=== PATIENT | female | born 1965 | race Caucasian/White ===

== ENCOUNTER 2016-04-23 11:07 | Inpatient (IN) | payer MEDICARE, OTHER ==
--- NOTE | ~2016-04-23 | CN ---
Consultation Report [facility] [place] [address] [place]. [address] NAME: LIMA LYON : 63 STATUS : ADM IN PAT#: [id number] AGE: 50 ADM/REG DATE : 04/23/16 MR#: [id number] REPORT SERV DATE: 04/25/16 DICTATED BY: DATE: REPORT STATUS : Draft TRANSCRIBED BY: MODL DATE: 04/25/16 CONSULT DATE OF CONSULTATION: 04/25/2016 CHIEF COMPLAINT/REASON FOR CONSULT: Paroxysmal atrial fibrillation and elevated cardiac biomarkers. HISTORY OF PRESENT ILLNESS: Mrs. Lima Lyon is a pleasant, 50-year-old female with a history of diabetes mellitus that is insulin dependent. She was hospitalized on 04/24/2016 with diabetic ketoacidosis after her insulin pump stopped. She converted to atrial fibrillation with rapid ventricular response during her hospital stay. An EKG performed at 0050 hours this morning documented atrial fibrillation with rapid ventricular response at 176 beats per minute. There is mild ST-segment depression in the inferior and anterolateral leads. The patient denied symptoms other than heart racing, specifically she denied chest pain or shortness of breath. She just felt like her heart was fluttering in her chest. She felt anxious but denied other symptoms. PAST MEDICAL HISTORY: 1. Insulin-dependent diabetes mellitus. 2. Prior bilateral amputations, query peripheral vascular disease. 3. Neuropathy. 4. Chronic stage 3 kidney disease. 5. Hiatal hernia. 6. 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 SOCIAL HISTORY: The patient smokes a pack of cigarettes per day and has for about 30-35 years. She does not use alcohol. She does smoke marijuana a few times a week; she states that it helps her neuropathy. FAMILY HISTORY: Significant for father with a history of [place]. She thinks that her mother may have had a history of [place] in the past as well. REVIEW OF SYSTEMS: Review of systems is performed and is negative except for what is dictated in HPI. PHYSICAL EXAMINATION: VITAL SIGNS: Temperature 97.8, pulse has ranged between 68 and 98 beats per minute, blood pressure 124/84 to 147/63, weight is 73 kg. GENERAL: Mrs. Lyon is a 50-year-old female. She appears much older than her stated age. NECK: I could not appreciate jugular venous distention. There are bilateral carotid bruits, right greater than left. HEART: Regular rate and rhythm. Normal S1, S2. I could not appreciate murmurs, rubs, or Consultation Report [place] [address] [place]. [address] NAME: LIMA LYON : 63 STATUS : ADM IN PAT#: [id number] AGE: 50 ADM/REG DATE : 04/23/16 MR#: [id number] REPORT SERV DATE: 04/25/16 DICTATED BY: DATE: REPORT STATUS : Draft TRANSCRIBED BY: MODL DATE: 04/25/16 gallops. LUNGS: There are end-expiratory wheezes in all the posterior lung huang. ABDOMEN: Soft and nontender. EXTREMITIES: Warm. Femoral pulses are +2 bilaterally. I could not appreciate femoral bruits. There is thjoj-fhk-zgvs amputation on the right. The posterior tibial pulse is intact on the left. REVIEW OF TEST RECORDS/MEDICAL DECISION MAKING: An EKG performed during the episode documented atrial fibrillation with rapid ventricular response of 176 beats per minute. There is mild ST-segment depression noted in the inferior and anterolateral leads. This is resolved with subsequent EKG performed at 0838 hours this morning, which documented normal sinus rhythm with no ischemic ST-T segment changes. DATA: Cardiac biomarkers were less than 0.02 on admission, increased to a peak of 0.19, and are now decreasing to 0.74. Potassium has ranged between 3.4 this morning and 6.6 on admission. BUN 12, creatinine 1.08, glucose is 124. White blood cell count 7.4, hemoglobin 9.2, hematocrit 26.8, platelet count 167. IMPRESSION REPORT AND PLAN: 1. Diabetic ketoacidosis. 2. Paroxysmal atrial fibrillation, now in normal sinus rhythm. 3. Abnormal cardiac biomarker likely secondary to demand. However, the patient has significant risk factors for coronary artery disease. 4. Presumed peripheral vascular disease. 5. Tobacco abuse. RECOMMENDATIONS: 1. I strongly recommended tobacco cessation. 2. Check echocardiogram to evaluate her left ventricular systolic function. 3. Check thyroid stimulating hormone function, has been normal. 4. Check carotid ultrasound. 5. I agree with heparin drip via the coronary protocol. 6. I discussed the risks, benefits of cardiac catheterization with the patient, who is agreeable to proceed. 7. If she has no significant obstructive disease, then she would probably be a candidate for anticoagulation for primary stroke prevention. 8. It has been my pleasure to participate in her care. Please keep her n.p.o. after midnight. Additional recommendations pending clinical course. PHILIP/FARZAD Francoise Danielle M.D. Consultation Report [address] [address] NAME: LIMA LYON : 63 STATUS : ADM IN PAT#: [id number] AGE: 50 ADM/REG DATE : 04/23/16 MR#: [id number] REPORT SERV DATE: 04/25/16 DICTATED BY: DATE: REPORT STATUS : Draft TRANSCRIBED BY: FARZAD DATE: 04/25/16 / [id number] CC: Darci Neri M.D.
--- NOTE | ~2016-04-23 | DS ---
Discharge Summary [facility] [address] [place]. [address] NAME: GERALDO LYON : 63 STATUS : DIS IN PAT#: [id number] AGE: 50 ADM/REG DATE : 04/23/16 MR#: [id number] REPORT SERV DATE: 04/27/16 DICTATED BY: CARTER CRYSTAL DATE: 04/26/16 REPORT STATUS : Draft TRANSCRIBED BY: MODL DATE: 04/26/16 ADMISSION DATE: 04/23/2016 DISCHARGE DATE: 04/26/2016 ACTIVITY COORDINATOR: Francoise Danielle M.D., Cardiology. DISCHARGE DIAGNOSES: 1. Diabetic ketoacidosis in a type 1 diabetic with pump malfunction suspected. 2. Paroxysmal atrial fibrillation with rapid ventricular response. 3. Suspected community-acquired pneumonia. 4. Previous cellulitis. 5. Peripheral arterial disease with previous right below-knee amputation because of methicillin-resistant Staphylococcus aureus osteomyelitis. 6. Chronic low back pain. HISTORY: This patient has had diabetes mellitus type 1 for 30 years. She presented to the emergency room at [facility] with high sugars, ketoacidosis, nausea and vomiting. Her initial blood gas; pH 7.16, pCO2 of 28, PO2 of 96, bicarbonate 17.8, serum ketones were large. The patient was given IV fluids and insulin and has improved. Procalcitonin was elevated at 7.47 and her white count was elevated at 12.3 up to 14.3. The patient admits that she was having cough with discolored sputum. Two blood cultures, no growth. Her chest film did not reveal an infiltrate on admission, but she was volume depleted, so it might have been missed. The patient was given antibiotic coverage with Rocephin 1 g every 24 hours and vancomycin 1 g followed by Pharmacy thereafter. Followup procalcitonin level was 4.83 on 04/25/2016 and her white blood count has normalized. The patient's hemoglobin was initially 8.5 and it is very dependent on her hydration status, but on 04/26/2016, it is 9.2. On 04/24/2016 and early in to the morning of 04/25/2016, she had atrial fibrillation with rapid ventricular response with heart rates up into the 170s. The patient was placed on a Cardizem drip. Troponin went from undetectable up to a peak of 0.91. Cardiology was consulted, Dr. Danielle. She recommended echocardiogram, which was done on 04/25/2016 showing normal left ventricular size and ejection fraction of 55% and left atrium 3 cm. She recommended the patient to have a heart catheterization, which was done on 04/26/2016 revealing minimal coronary artery irregularities in the circumflex, a 25% lesion in the mid RCA, otherwise, normal. Left ventricular ejection fraction 60%. No mitral regurgitation. No aortic stenosis. Her TSH is normal at 0.746. She was started on metoprolol and recommended for anticoagulation. Dr. Danielle explained the reason for anticoagulation to reduce the risk of embolic stroke, the patient did not want to begin this. I explained the reason for anticoagulation at a separate visit with the patient. She again states she is not willing to start it, she wants to go to see her circular sawyer helper, Dr. Llanos, and she states she will be seeing Dr. Llanos's as her new PCP as of 05/08/2016 and she wants to discuss it with Dr. Llanos and her new PCP before she begin any anticoagulation; however, she has been willing to take metoprolol. Discharge Summary [place] [id number] [place]. [address] NAME: GERALDO LYON : 63 STATUS : DIS IN PAT#: [id number] AGE: 50 ADM/REG DATE : 04/23/16 MR#: [id number] REPORT SERV DATE: 04/27/16 DICTATED BY: CARTER CRYSTAL DATE: 04/26/16 REPORT STATUS : Draft TRANSCRIBED BY: FARZAD DATE: 04/26/16 The ict educator is here to work with her this evening to make sure that her pump is working properly. If it is, the patient can transition to her pump and go home. Her bicarbonate today is 25 and potassium is 3.8. Sugars were doing very well precatheterization, during the time down in cath, they got up into 300s. We have given her some extra insulin and they already dramatically improved. DISCHARGE MEDICATIONS: Aspirin 325 mg daily; estradiol 2 mg daily; gabapentin 600 mg t.i.d.; melatonin, she can use [id number]-[id number]-[id number] 9 mg at bedtime p.r.n.; metoprolol 12.5 mg b.i.d.; nicotine patch 14 mg size [id number]; Tylenol 650 q.6 hours p.r.n. pain or fever; Bailey 10/325 t.i.d. p.r.n. pain, which is a chronic medicine for her for her low back pain; then her NovoLog for her insulin pump; and then Levaquin 750 mg p.o. daily for five days for this suspected community-acquired pneumonia. I spent 42 minutes today with the patient and with her nurse and with the ict educator and with discharge planning. RSG/MODL Carter Crystal M.D. / [id number] CC: Kyler Freedman M.D.
--- NOTE | ~2016-04-23 | HP ---
History And Physical [place] [address] [facility] [place]. [address] NAME: GERALDO LYON : 63 STATUS : ADM IN [facility]#: [id number] AGE: 50 ADM/REG DATE : 04/23/16 MR#: [id number] REPORT SERV DATE: 04/24/16 DICTATED BY: TOBI WALLACE DATE: 04/23/16 REPORT STATUS : Draft TRANSCRIBED BY: MODL DATE: 04/23/16 DATE OF ADMISSION: 04/23/2016 CHIEF COMPLAINT: Very high blood sugars. HISTORY OF PRESENT ILLNESS: This is a 50-year-old female with a history of poorly controlled diabetes mellitus with neuropathy and other complications along with gastroparesis who has had numerous episodes of diabetic ketoacidosis, presents to the emergency room at [facility] with the above-mentioned complaint. History is obtained from the patient, and reviewing data available on the [employer] system. According to available data, Mrs. Lyon had been doing poorly for the last three days at home. She says her blood sugars were too high to record and she had been vomiting constantly. She became very weak and obtunded today and was brought to the emergency room. In the emergency room, initial evaluation revealed she had diabetic ketoacidosis with a blood gas of 7.16, 28, 96, and 9.5. Her anion gap was 21 and blood glucose was 741. She was started on fluid replacement therapy aggressively and they had planned to put her in the Medical Intensive Care Unit. They had spoken to the household coordinator who was taking care of the patient as there were beds in the ICU. Her blood sugars came down with treatment and insulin infusion. Her anion gap was resolving and last known was 14. Blood gases showed a 7.23, 35, 49, and 14.5. Hospitalist Service was asked to admit the patient to the floor bed with telemetry for further evaluation and treatment. At the time of my evaluation, she was still lethargic and had to be woken up several times. She was however coherent and able to give reasonably good history. She denied any chest pain, palpitations, or orthopnea. She had no cough, hemoptysis, night sweats, or weight loss. She had no history of recent falls or loss of consciousness. No history of fevers, chills, dysuria, hematuria, hematemesis, or hematochezia. She did have nausea and vomiting mostly bilious as mentioned above. No diarrhea. No other history of recent travel or exposures. PAST MEDICAL HISTORY: Significant for history of prior admissions for diabetic ketoacidosis. She has poorly controlled diabetes mellitus insulin dependent, history of complications from diabetes including neuropathy and gastroparesis, and nephropathy. She has stage 3 chronic kidney disease. She also has a hiatal hernia. She has below-knee amputation on the right lower extremity and amputation of toes of the left lower extremity as well. SOCIAL HISTORY: She has about 30- to 89-fbmn-iyff history of smoking. Denied alcohol use or recreational drug use. FAMILY HISTORY: Noncontributory. MEDICATIONS: Her medications at home were reviewed by me in the chart today and reordered by me. History And Physical [address] [address] NAME: GERALDO LYON : 63 STATUS : ADM IN [facility]#: [id number] AGE: 50 ADM/REG DATE : 04/23/16 MR#: [id number] REPORT SERV DATE: 04/24/16 DICTATED BY: TOBI WALLACE DATE: 04/23/16 REPORT STATUS : Draft TRANSCRIBED BY: FARZAD DATE: 04/23/16 REVIEW OF SYSTEMS: As in history of present illness. All other systems were reviewed in detail are quite unremarkable. PHYSICAL EXAMINATION: GENERAL: This is a 50-year-old who is not awake and alert, but arousable and follows commands. HEENT: Her head is atraumatic and normocephalic. Pupils are equal, reacting to light and accommodating. External ocular muscles are intact. Membranes are moist and pink. Sclerae are nonicteric. NECK: Supple with no jugular venous distention, lymphadenopathy, or thyromegaly. LUNGS: Clear to auscultation with no wheezes, rubs, or crackles. HEART: Heart sounds were regular with no murmurs, rubs, or gallops. ABDOMEN: Soft and nontender. Bowel sounds are present. EXTREMITIES: No cyanosis, clubbing, or edema. As mentioned above she has a right BKA and amputation of the left toes. NEUROLOGIC: Grossly intact. No focal deficits. She was able to move all four extremities. Higher functions appeared intact. VITAL SIGNS: Today showed a temperature of 100.2, pulse 96, respirations 24 a minute, blood pressure was 105/52, and oxygen saturations were 100% on 2 L via nasal cannula. LABORATORY DATA: Reviewed on the [employer] system showed a pH of 7.23 on the last blood gas done, pCO2 was 35, PaO2 of 49, and bicarb was 14.5. This was on room air. CMP showed a sodium of 145, potassium 4.5, chloride 117, and CO2 of 21. BUN was 33 with a creatinine of 1.72 and blood glucose was 125. Her alkaline phosphatase was 149. AST and ALT were within normal limits. Lipase was 82. She had a large acetone when she initially came, troponin was 0.02 today and lactate was 2.6 initially and is down to 1.5. [place] [address], hemoglobin was 10.7, hematocrit 32.6, and platelet count was 240,000. Urinalysis showed no gross abnormality. Films of the chest x-ray were reviewed by me on the PACS today and interpreted by me. Per my interpretation, she had normal bony architecture with no cardiomegaly. There were no lobar consolidations or pleural effusions seen. A 12-lead EKG done in emergency room was reviewed and interpreted by me. There is sinus tachycardia with a rate of 197 upon arrival. IMPRESSION: 1. Diabetic ketoacidosis. 2. Hyperglycemia. 3. Acute kidney injury on chronic kidney disease stage 3. 4. Hyperkalemia. 5. Diabetic neuropathy and nephropathy. History And Physical [address] [address] NAME: GERALDO LYON : 63 STATUS : ADM IN [facility]#: [id number] AGE: 50 ADM/REG DATE : 04/23/16 MR#: [id number] REPORT SERV DATE: 04/24/16 DICTATED BY: TOBI WALLACE DATE: 04/23/16 REPORT STATUS : Draft TRANSCRIBED BY: MODL DATE: 04/23/16 6. Amputations done right below-knee amputation and amputation of digits in her left toe. 7. Hiatal hernia. 8. History of osteomyelitis. PLAN: We will admit Mrs. Lyon to the Hospitalist Service with telemetry for close monitoring. She had already received more than 5 L of intravenous fluids. She had received 3 L of lactated Ringer's and 2 L of normal saline. She was currently on D5 lactated Ringer's when I saw her. By this time, her blood sugars were down to 145. She was currently on 4 units of insulin infusion. We will change this to D5 half-normal saline while on an insulin infusion at 3 units. We will check her basic metabolic profile q.4 hours and replete as needed. She will be on the DKA protocol. We will also place her on unfractionated heparin for DVT prophylaxis and keep her n.p.o. for now and hold her pain medicines. Please see today's orders for details. I will start her on bronchodilator treatments, obtain cultures, and start her on broad-spectrum antibiotics as well. I have discussed the above plans with the patient. Questions were answered. She is agreeable to the above recommendations. Hospitalist Service will be following her during her stay here. /FARZAD Tobi Wallace M.D. / [id number] CC: Balwinder Hall M.D.
[~2016-04-23 11:07] MED LIST: *DENIES; A/D ZINC OXI T; ADDERALL20 MG PO; AMOXIL500 MG PO; CEFADROXIL1 GM; CEFADROXIL1 GM PO; CEFT5 PO; CIP5 PO; CLEOCIN300 MG PO; HUMALOG SC; HUMAPUMP SC; LANTUS SC; LEVAQUIN750 MG PO; MACROBID PO; MONODOX100 MG PO; NEUR600 PO; NICODERM C21 MG/241 TOP; NOVLOGPUMP SC; NOVOLOG SC; PAXIL40 MG PO; PCET PO; PR12.5 PO; PROAIR HFA INH; PROBIOTIC OF CHOICE PO; PROTONIX20 MG PO; ROXICODONE30 MG PO; SILVASORB TOP; TRILEP300 PO; VIB100 PO; X5 PO; XANAX XR2 MG PO
[2016-04-23 11:29] LABS: HEMATOCRIT 32.6 % (36.0-48.0); HEMOGLOBIN 10.7 g/dL (12.0-16.0); MEAN CORPUS HGB CONC 32.8 g/dL (32.0-36.0); MEAN CORPUSCULAR HEMOGLOB 35.5 pg (26.0-34.0); MEAN PLATELET VOLUME 9.5 fL (9.2-13.0); PLATELET COUNT 240 10/3/uL (150-400); RBC DISTRIBUTION WIDTH 13.3 % (12.0-16.0); RED CELL COUNT 3.01 10/6/uL (4.0-5.6); WHITE BLOOD CELLS 13.1 10/3/uL (4.5-10.5)
[2016-04-23 11:34] LABS: ACETONE LARGE; MANUAL DIFF YES %; MEAN CORPUSCULAR VOLUME 108.3 fL (80-100)
[2016-04-23 11:41] LABS: ALLENS TEST Pos; BE (BASE EXCESS) -17.8 MEQ/L (0 +/- 2.5); CARBOXYHEMOGLOBIN 1.8 % (0-3); HCO3 (ACTUAL BICARBONATE) 9.5 MEQ/L (23-27); HEMOBLOGIN CONTENT 11.4 G/DL (12-16); INSTRUMENT SERIAL # 8087; METHEMOGLOBIN 0.4 % (0-3); O2 CONTENT 15.2 VOL% (18-24); OPERATOR ID 14335; PCO2 (CO2 TENSION) 28 MMHG (35-45); PO2 (O2 TENSION) 96 MMHG (79-93); SAMPLE Arterial; pH 7.16 (7.37-7.43)
[2016-04-23 11:43] LABS: ASCORBIC ACID (UR NOT ORDER) NEG (NEG); BILIRUBIN, URINE NEGATIVE (NEG); ER URINALYSIS TAT 0 Hrs 13 Mins; KETONE, URINE 80 MG/DL (NEG); LEUKOCYTE ESTERASE(NOT OR NEG (NEG); WBC (NOT ORDERED) (RFLEX) < 1 (0-5)
[2016-04-23 11:46] LABS: NITRITE (URINE) NEG (NEG)
[2016-04-23 11:48] LABS: A/G RATIO 1.1 (0.7-1.9); ALBUMIN 3.8 G/DL (3.5-5.0); CALCIUM, SERUM 9.1 MG/DL (8.5-10.4); CHLORIDE, SERUM 100 MMOL/L (96-112); GLOBULIN 3.4 G/DL (2.5-4.1); SGOT(AST) 29 U/L (5-40); SGPT(ALT) 28 U/L (5-65); SODIUM, SERUM 131 MMOL/L (135-148); TOTAL BILIRUBIN 0.6 MG/DL (0-1.2); TOTAL PROTEIN 7.2 G/DL (6.0-8.5); TROPONIN I <0.02 NG/ML (<0.05)
[2016-04-23 11:49] LABS: ALKALINE PHOSPHATASE 149 U/L (45-117); BUN (BLOOD UREA NITROGEN) 37 MG/DL (6-23); CO2 (CARBON DIOXIDE) 10 MMOL/L (24-34); CREATININE 1.96 MG/DL (0.55-1.02); GFR AFRICAN AMERICAN 33 ML/MIN (>=60); GFR NON AFRICAN AMERICAN 29 ML/MIN (>=60); GLUCOSE, SERUM 741 MG/DL (60-99); POTASSIUM, SERUM 6.6 MMOL/L (3.5-5.3)
[2016-04-23] MEDS ORDERED: ESTRADIOL2 MG PO (12:27)
[2016-04-23] MEDS ORDERED: NEUR600 PO (12:28)
[2016-04-23] MEDS ORDERED: *UNABLE2 (12:29)
[2016-04-23] MEDS ORDERED: NORCO1 TAB PO (12:29)
[2016-04-23] MEDS ORDERED: NOVLOGPUMP SC (12:29)
[2016-04-23 12:30] LABS: SEGMENTED NEUTROPHIL (0) 87 %; TOTAL NUCLEATED CELLS 100
[2016-04-23 12:32] LABS: BAND NEUTROPHILS 1 %; ER DIFF TAT 1 Hrs 05 Mins; LYMPHOCYTES 8 %; LYMPHOCYTES ABSOLUTE (CALC) 1.05 10/3/uL (0.67-4.30); MONOCYTES 4 %; MONOCYTES ABSOLUTE (CALC) 0.52 10/3/uL (0.21-1.20); NEUTROPHILS ABSOLUTE (CALC) 11.53 10/3/uL (2.02-8.40); PLATELET ESTIMATE ADQ (ADEQUATE)
[2016-04-23 15:33] LABS: BASOPHILS 0 %; EOSINOPHILS 0 %; HEMOGLOBIN 8.8 g/dL (12.0-16.0); IMMATURE GRANULOCYTES 0.4 %; IMMATURE GRANULOCYTES ABSOLUTE 0.06 10/3/uL (0.0-0.11); LYMPHOCYTES 5.7 %; LYMPHOCYTES ABSOLUTE 0.82 10/3/uL (0.67-4.30); MEAN CORPUSCULAR HEMOGLOB 34.2 pg (26.0-34.0); MEAN PLATELET VOLUME 9.1 fL (9.2-13.0); MONOCYTES 4.9 %; NEUTROPHILS ABSOLUTE 12.76 10/3/uL (2.02-8.40); PLATELET COUNT 189 10/3/uL (150-400); RBC DISTRIBUTION WIDTH 13.3 % (12.0-16.0); RED CELL COUNT 2.57 10/6/uL (4.0-5.6); WHITE BLOOD CELLS 14.3 10/3/uL (4.5-10.5)
[2016-04-23 15:35] LABS: HEMATOCRIT 26.7 % (36.0-48.0); MANUAL DIFF NO %; MEAN CORPUSCULAR VOLUME 103.9 fL (80-100)
[2016-04-23 15:46] LABS: ALBUMIN 2.8 G/DL (3.5-5.0); BUN (BLOOD UREA NITROGEN) 35 MG/DL (6-23); CALCIUM, SERUM 7.7 MG/DL (8.5-10.4); CHLORIDE, SERUM 111 MMOL/L (96-112); CO2 (CARBON DIOXIDE) 16 MMOL/L (24-34); CREATININE 1.79 MG/DL (0.55-1.02); GFR AFRICAN AMERICAN 37 ML/MIN (>=60); GFR NON AFRICAN AMERICAN 32 ML/MIN (>=60); GLUCOSE, SERUM 399 MG/DL (60-99); PHOSPHORUS, SERUM 3.7 MG/DL (2.5-4.5); POTASSIUM, SERUM 5.2 MMOL/L (3.5-5.3); SODIUM, SERUM 141 MMOL/L (135-148)
[2016-04-23 15:54] LABS: LACTATE 2.2 MMOL/L (0.3-2.4)
[2016-04-23 16:39] LABS: ALLENS TEST Pos; BE (BASE EXCESS) -12.1 MEQ/L (0 +/- 2.5); CARBOXYHEMOGLOBIN 1.5 % (0-3); HCO3 (ACTUAL BICARBONATE) 14.5 MEQ/L (23-27); HEMOBLOGIN CONTENT 9.4 G/DL (12-16); INSTRUMENT SERIAL # 8087; METHEMOGLOBIN 0.6 % (0-3); OPERATOR ID 14335; PCO2 (CO2 TENSION) 35 MMHG (35-45); PO2 (O2 TENSION) 49 MMHG (79-93); SAMPLE Venous; pH 7.23 (7.37-7.43)
[2016-04-23 20:25] LABS: ALBUMIN 2.7 G/DL (3.5-5.0); BUN (BLOOD UREA NITROGEN) 33 MG/DL (6-23); CALCIUM, SERUM 7.9 MG/DL (8.5-10.4); CHLORIDE, SERUM 117 MMOL/L (96-112); CREATININE 1.72 MG/DL (0.55-1.02); GFR AFRICAN AMERICAN 39 ML/MIN (>=60); GFR NON AFRICAN AMERICAN 34 ML/MIN (>=60); POTASSIUM, SERUM 4.5 MMOL/L (3.5-5.3); SODIUM, SERUM 145 MMOL/L (135-148)
[2016-04-23 20:26] LABS: CO2 (CARBON DIOXIDE) 21 MMOL/L (24-34); GLUCOSE, SERUM 125 MG/DL (60-99); PHOSPHORUS, SERUM 1.8 MG/DL (2.5-4.5)
[2016-04-23 21:56] LABS: BASOPHILS 0.1 %; BASOPHILS ABSOLUTE 0.01 10/3/uL (0.0-0.16); EOSINOPHILS 0 %; HEMATOCRIT 25.9 % (36.0-48.0); HEMOGLOBIN 8.5 g/dL (12.0-16.0); IMMATURE GRANULOCYTES 0.3 %; IMMATURE GRANULOCYTES ABSOLUTE 0.04 10/3/uL (0.0-0.11); LYMPHOCYTES 10.2 %; LYMPHOCYTES ABSOLUTE 1.25 10/3/uL (0.67-4.30); MEAN CORPUS HGB CONC 32.8 g/dL (32.0-36.0); MEAN CORPUSCULAR HEMOGLOB 33.3 pg (26.0-34.0); MEAN CORPUSCULAR VOLUME 101.6 fL (80-100); MEAN PLATELET VOLUME 9.5 fL (9.2-13.0); MONOCYTES ABSOLUTE 0.86 10/3/uL (0.21-1.20); NEUTROPHILS 82.4 %; NEUTROPHILS ABSOLUTE 10.13 10/3/uL (2.02-8.40); PLATELET COUNT 198 10/3/uL (150-400); RBC DISTRIBUTION WIDTH 13.3 % (12.0-16.0); RED CELL COUNT 2.55 10/6/uL (4.0-5.6); WHITE BLOOD CELLS 12.3 10/3/uL (4.5-10.5)
[2016-04-23 21:57] LABS: MANUAL DIFF NO %
[2016-04-23 22:14] LABS: ULTRASENSITIVE TSH 0.746 MCIU/ML (0.358-3.740)
[2016-04-23 22:42] LABS: PROCALCITONIN 7.47 ng/mL (<0.5)
[2016-04-24 01:20] LABS: BUN (BLOOD UREA NITROGEN) 31 MG/DL (6-23); CHLORIDE, SERUM 115 MMOL/L (96-112); CO2 (CARBON DIOXIDE) 19 MMOL/L (24-34); CREATININE 1.54 MG/DL (0.55-1.02); GFR AFRICAN AMERICAN 45 ML/MIN (>=60); GFR NON AFRICAN AMERICAN 39 ML/MIN (>=60); POTASSIUM, SERUM 4.5 MMOL/L (3.5-5.3); SODIUM, SERUM 144 MMOL/L (135-148)
[2016-04-24 01:25] LABS: GLUCOSE, SERUM 92 MG/DL (60-99)
[2016-04-24 04:39] LABS: BUN (BLOOD UREA NITROGEN) 31 MG/DL (6-23); CALCIUM, SERUM 7.8 MG/DL (8.5-10.4); CHLORIDE, SERUM 116 MMOL/L (96-112); CO2 (CARBON DIOXIDE) 19 MMOL/L (24-34); GFR AFRICAN AMERICAN 40 ML/MIN (>=60); GFR NON AFRICAN AMERICAN 34 ML/MIN (>=60); POTASSIUM, SERUM 4.4 MMOL/L (3.5-5.3); SODIUM, SERUM 143 MMOL/L (135-148)
[2016-04-24 04:40] LABS: GLUCOSE, SERUM 122 MG/DL (60-99)
[2016-04-24 10:33] LABS: BUN (BLOOD UREA NITROGEN) 27 MG/DL (6-23); CALCIUM, SERUM 7.5 MG/DL (8.5-10.4); CHLORIDE, SERUM 116 MMOL/L (96-112); CO2 (CARBON DIOXIDE) 20 MMOL/L (24-34); CREATININE 1.54 MG/DL (0.55-1.02); GFR AFRICAN AMERICAN 45 ML/MIN (>=60); GFR NON AFRICAN AMERICAN 39 ML/MIN (>=60); GLUCOSE, SERUM 90 MG/DL (60-99); POTASSIUM, SERUM 4.2 MMOL/L (3.5-5.3); SODIUM, SERUM 145 MMOL/L (135-148)
[2016-04-24 12:02] LABS: BUN (BLOOD UREA NITROGEN) 25 MG/DL (6-23); CALCIUM, SERUM 7.9 MG/DL (8.5-10.4); CHLORIDE, SERUM 117 MMOL/L (96-112); CO2 (CARBON DIOXIDE) 20 MMOL/L (24-34); CREATININE 1.52 MG/DL (0.55-1.02); GFR AFRICAN AMERICAN 46 ML/MIN (>=60); GFR NON AFRICAN AMERICAN 39 ML/MIN (>=60); GLUCOSE, SERUM 93 MG/DL (60-99); POTASSIUM, SERUM 3.7 MMOL/L (3.5-5.3); SODIUM, SERUM 145 MMOL/L (135-148)
[2016-04-25 03:48] LABS: BASOPHILS 0 %; EOSINOPHILS 0.7 %; EOSINOPHILS ABSOLUTE 0.05 10/3/uL (0.0-0.53); HEMATOCRIT 26.8 % (36.0-48.0); HEMOGLOBIN 9.2 g/dL (12.0-16.0); IMMATURE GRANULOCYTES 0.1 %; IMMATURE GRANULOCYTES ABSOLUTE 0.01 10/3/uL (0.0-0.11); LYMPHOCYTES 18.8 %; LYMPHOCYTES ABSOLUTE 1.39 10/3/uL (0.67-4.30); MEAN CORPUS HGB CONC 34.3 g/dL (32.0-36.0); MEAN CORPUSCULAR VOLUME 101.9 fL (80-100); MEAN PLATELET VOLUME 9.2 fL (9.2-13.0); MONOCYTES 7.6 %; MONOCYTES ABSOLUTE 0.56 10/3/uL (0.21-1.20); NEUTROPHILS 72.8 %; NEUTROPHILS ABSOLUTE 5.38 10/3/uL (2.02-8.40); PLATELET COUNT 167 10/3/uL (150-400); RBC DISTRIBUTION WIDTH 13.4 % (12.0-16.0); RED CELL COUNT 2.63 10/6/uL (4.0-5.6); WHITE BLOOD CELLS 7.4 10/3/uL (4.5-10.5)
[2016-04-25 03:50] LABS: MANUAL DIFF NO %
[2016-04-25 04:23] LABS: ALBUMIN 2.7 G/DL (3.5-5.0); CALCIUM, SERUM 7.9 MG/DL (8.5-10.4); CHLORIDE, SERUM 115 MMOL/L (96-112); CO2 (CARBON DIOXIDE) 23 MMOL/L (24-34); CREATININE 1.08 MG/DL (0.55-1.02); GFR AFRICAN AMERICAN 69 ML/MIN (>=60); GFR NON AFRICAN AMERICAN 59 ML/MIN (>=60); POTASSIUM, SERUM 3.4 MMOL/L (3.5-5.3); SGOT(AST) 32 U/L (5-40); SGPT(ALT) 25 U/L (5-65); SODIUM, SERUM 148 MMOL/L (135-148); TOTAL BILIRUBIN 0.4 MG/DL (0-1.2); TRIGLYCERIDE 72 MG/DL (< 150)
[2016-04-25 04:26] LABS: A/G RATIO 0.9 (0.7-1.9); ALKALINE PHOSPHATASE 100 U/L (45-117); BUN (BLOOD UREA NITROGEN) 12 MG/DL (6-23); CHOLESTEROL 121 MG/DL (< 200); GLUCOSE, SERUM 124 MG/DL (60-99); HDL CHOLESTEROL 61 MG/DL (> 49); LDL CHOLESTEROL 46 MG/DL (< 130); NON-HDL CHOLESTEROL 60 MG/DL (< 160); PHOSPHORUS, SERUM 2.6 MG/DL (2.5-4.5); TOTAL PROTEIN 5.7 G/DL (6.0-8.5); TROPONIN I 0.74 NG/ML (<0.05)
[2016-04-25 11:19] LABS: ALBUMIN 2.8 G/DL (3.5-5.0); BUN (BLOOD UREA NITROGEN) 9 MG/DL (6-23); CALCIUM, SERUM 8.1 MG/DL (8.5-10.4); CHLORIDE, SERUM 114 MMOL/L (96-112); CO2 (CARBON DIOXIDE) 23 MMOL/L (24-34); CPK (IF ELEVATED MB BANDS) 61 U/L (0-200); CREATININE 1.14 MG/DL (0.55-1.02); GFR AFRICAN AMERICAN 64 ML/MIN (>=60); GFR NON AFRICAN AMERICAN 56 ML/MIN (>=60); SODIUM, SERUM 146 MMOL/L (135-148)
[2016-04-25 11:21] LABS: FOLATE 8.9 NG/ML (>5.2); GLUCOSE, SERUM 152 MG/DL (60-99); POTASSIUM, SERUM 4.1 MMOL/L (3.5-5.3); TROPONIN I 0.76 NG/ML (<0.05)
[2016-04-25 11:28] LABS: PROCALCITONIN 4.83 ng/mL (<0.5)
[2016-04-26 05:05] LABS: BASOPHILS 0 %; EOSINOPHILS 2.7 %; EOSINOPHILS ABSOLUTE 0.11 10/3/uL (0.0-0.53); HEMOGLOBIN 7.9 g/dL (12.0-16.0); LYMPHOCYTES 39.3 %; LYMPHOCYTES ABSOLUTE 1.58 10/3/uL (0.67-4.30); MEAN CORPUS HGB CONC 33.5 g/dL (32.0-36.0); MEAN CORPUSCULAR HEMOGLOB 34.1 pg (26.0-34.0); MEAN CORPUSCULAR VOLUME 101.7 fL (80-100); MEAN PLATELET VOLUME 9.4 fL (9.2-13.0); NEUTROPHILS ABSOLUTE 1.93 10/3/uL (2.02-8.40); PLATELET COUNT 124 10/3/uL (150-400); RBC DISTRIBUTION WIDTH 13.6 % (12.0-16.0); RED CELL COUNT 2.32 10/6/uL (4.0-5.6)
[2016-04-26 05:11] LABS: HEMATOCRIT 23.6 % (36.0-48.0); MANUAL DIFF NO %
[2016-04-26 05:12] LABS: INTERNATIONAL NORMAL RATI 1.1 UNITS (-); PROTIME (NOT ORD) 13.6 SEC (12.0-14.5)
[2016-04-26 05:20] LABS: PARTIAL THROMBO TIME 111.3 SEC (22.5-37.2)
[2016-04-26 05:45] LABS: ALBUMIN 2.4 G/DL (3.5-5.0); BUN (BLOOD UREA NITROGEN) 8 MG/DL (6-23); CALCIUM, SERUM 7.6 MG/DL (8.5-10.4); CHLORIDE, SERUM 112 MMOL/L (96-112); CO2 (CARBON DIOXIDE) 25 MMOL/L (24-34); CPK (IF ELEVATED MB BANDS) 41 U/L (0-200); CREATININE 1.13 MG/DL (0.55-1.02); GFR AFRICAN AMERICAN 65 ML/MIN (>=60); GFR NON AFRICAN AMERICAN 56 ML/MIN (>=60); GLUCOSE, SERUM 100 MG/DL (60-99); PHOSPHORUS, SERUM 3.7 MG/DL (2.5-4.5); POTASSIUM, SERUM 3.8 MMOL/L (3.5-5.3); SODIUM, SERUM 144 MMOL/L (135-148); TROPONIN I 0.52 NG/ML (<0.05)
[2016-04-26 09:23] LABS: BASOPHILS 0 %; EOSINOPHILS 3.3 %; EOSINOPHILS ABSOLUTE 0.15 10/3/uL (0.0-0.53); HEMATOCRIT 27.8 % (36.0-48.0); HEMOGLOBIN 9.2 g/dL (12.0-16.0); IMMATURE GRANULOCYTES 0.2 %; IMMATURE GRANULOCYTES ABSOLUTE 0.01 10/3/uL (0.0-0.11); LYMPHOCYTES 38.8 %; LYMPHOCYTES ABSOLUTE 1.74 10/3/uL (0.67-4.30); MEAN CORPUS HGB CONC 33.1 g/dL (32.0-36.0); MEAN CORPUSCULAR HEMOGLOB 34.5 pg (26.0-34.0); MEAN CORPUSCULAR VOLUME 104.1 fL (80-100); MEAN PLATELET VOLUME 9.6 fL (9.2-13.0); MONOCYTES 11.8 %; MONOCYTES ABSOLUTE 0.53 10/3/uL (0.21-1.20); NEUTROPHILS 45.9 %; NEUTROPHILS ABSOLUTE 2.05 10/3/uL (2.02-8.40); PLATELET COUNT 133 10/3/uL (150-400); RBC DISTRIBUTION WIDTH 13.6 % (12.0-16.0); RED CELL COUNT 2.67 10/6/uL (4.0-5.6); WHITE BLOOD CELLS 4.5 10/3/uL (4.5-10.5)
[2016-04-26 09:24] LABS: MANUAL DIFF NO %
[2016-04-26] MEDS ORDERED: LOP25 PO (17:15)
[2016-04-26] MEDS ORDERED: LEVAQUIN750 MG PO (17:16)
[2016-04-26] MEDS ORDERED: MELA3 PO (17:17)
[2016-04-26] MEDS ORDERED: HABIT14 TOP (17:19)
[2016-04-26] MEDS ORDERED: T PO (17:19)
== END 2016-04-26 18:51 | disposition home or self-care (01) | DRG 919 ==
LOC: ER 11:07 → 7NO 21:08
PROVIDERS: Emergency Medicine; Hospitalist; Internal Medicine; Internal Medicine Cardiovascular Disease; Internal Medicine Critical Care Medicine; Internal Medicine Pulmonary Disease
PROC: 4A023N7 Measurement of Cardiac Sampling and Pressure, Left Heart, Percutaneous Approach (ICD-10-PCS; principal; 2016-04-26)
PROC: B2111ZZ Fluoroscopy of Multiple Coronary Arteries using Low Osmolar Contrast (ICD-10-PCS; 2016-04-26)
PROC: B2151ZZ Fluoroscopy of Left Heart using Low Osmolar Contrast (ICD-10-PCS; 2016-04-26)
DX: T85.614A Breakdown (mechanical) of insulin pump, initial encounter (principal); E10.10 Type 1 diabetes mellitus with ketoacidosis without coma; J18.9 Pneumonia, unspecified organism; E11.40 Type 2 diabetes mellitus with diabetic neuropathy, unspecified; I24.8 Other forms of acute ischemic heart disease; K31.84 Gastroparesis; E10.21 Type 1 diabetes mellitus with diabetic nephropathy; I47.1 Supraventricular tachycardia; N18.3 Chronic kidney disease, stage 3 (moderate); I48.0 Paroxysmal atrial fibrillation; T38.3X6A Underdosing of insulin and oral hypoglycemic [antidiabetic] drugs, initial encounter; I73.9 Peripheral vascular disease, unspecified; E10.43 Type 1 diabetes mellitus with diabetic autonomic (poly)neuropathy; E86.9 Volume depletion, unspecified; K44.9 Diaphragmatic hernia without obstruction or gangrene; F17.210 Nicotine dependence, cigarettes, uncomplicated; M54.5 Low back pain; Z79.4 Long term (current) use of insulin; Z96.41 Presence of insulin pump (external) (internal); Z88.0 Allergy status to penicillin; Z88.5 Allergy status to narcotic agent; Z79.82 Long term (current) use of aspirin; Z86.14 Personal history of Methicillin resistant Staphylococcus aureus infection; Z89.511 Acquired absence of right leg below knee; Z89.412 Acquired absence of left great toe; Z89.422 Acquired absence of other left toe(s)
CPT/HCPCS: 36600; 71010; 80048; 80053; 80061; 80069; 81001; 82009; 82550; 82607; 82746; 82805; 82962; 83036; 83605; 83690; 83735; 84100; 84145; 84443; 84484; 85025; 85610; 85730; 87040; 93005; 93306; 93458; 93880; 94640; 96361; 96374; 96375; 99152; 99291; A9270-GY; C1769; C1887; C1894; C9113; J2250; J2550; J3010; J3370; Q9967